=== PATIENT | male | born 1970 | race Two or more races ===

== ENCOUNTER 2017-01-19 21:52 | Emergency (ER) | payer BC, MEDICAID ==
[~2017-01-19] VITALS: Ht 177.8 cm; Wt 127.0 kg
[2017-01-19] MEDS ORDERED: MORPHINE SULFATE 4 MG/ML SYRG ONE (23:41)
[2017-01-19] MEDS ORDERED: ONDANSETRON HCL 4 MG/2 ML VIAL ONE (23:42)
[2017-01-20] MEDS ORDERED: ONDANSETRON HCL 4 MG/2 ML VIAL IM ONE (00:15)
[2017-01-20] MEDS ORDERED: MORPHINE SULFATE 4 MG/ML SYRG IM ONE (00:15)
[2017-01-20 03:08] LABS: Basophils # (auto) 0 uL; Basophils % (auto) 0.2 % (0.0-2.0); CONDITION Y; Eosinophils # (auto) 0.2 uL; Hematocrit 39.7 % (41.0-53.0); Hemoglobin 13.9 g/dL (13.5-17.5); Lymphocytes # (auto) 2.9 uL; Lymphocytes % (auto) 37.3 % (10.0-50.0); Mean Corpuscular Hemoglobin 31.4 pg (28.0-32.0); Mean Corpuscular Volume 89.8 fL (80.0-100.0); Monocytes # (auto) 0.6 uL; Monocytes % (auto) 8.1 % (0.0-12.0); Neutrophils # (auto) 4.1 uL; Neutrophils % (auto) 52.4 % (37.0-80.0); Platelet Count (auto) 280 10^3/uL (140-450); Red Cell Distribution Width 13.4 % (11.6-16.0); White Blood Cell 7.8 10^3/uL (4.4-10.8)
[2017-01-20 03:38] LABS: Albumin 3.8 g/dL (3.4-5.0); BUN/Creatinine Ratio 15.2; Bilirubin, Total 0.6 mg/dL (0.2-1.0); Calcium 8.5 mg/dL (8.5-10.1); Potassium 3.9 mmol/L (3.5-5.1); Total Protein 7.4 g/dL (6.4-8.2)
[2017-01-20 04:00] VITALS: BP 144/98
== END 2017-01-20 05:10 | disposition home or self-care (01) ==
LOC: EDBD 21:52 → ER 21:58
DX: S33.5XXA Sprain of ligaments of lumbar spine, initial encounter (principal); S29.019A Strain of muscle and tendon of unspecified wall of thorax, initial encounter; S16.1XXA Strain of muscle, fascia and tendon at neck level, initial encounter; R51 Headache; M79.1 Myalgia; W18.39XA Other fall on same level, initial encounter; Y93.89 Activity, other specified; Y92.89 Other specified places as the place of occurrence of the external cause; Y99.8 Other external cause status
CPT/HCPCS: 36415; 70450; 72125; 72128; 72131; 80053; 85025; 96372; 99285; J2270; J2405

== ENCOUNTER → 2024-08-05 | Outpatient (CLI) | payer OTHER ==
[2024-08-07 10:24] LABS: Hepatitis B Surface Antibody Negative (Negative); Hepatitis B Surface Antigen Negative (Negative)
== END | disposition home or self-care (01) ==
LOC: LAB 12:50
PROVIDERS: ATTEND Nurse Practitioner
DX: Z01.89 Encounter for other specified special examinations (principal); Z20.5 Contact with and (suspected) exposure to viral hepatitis; Z20.6 Contact with and (suspected) exposure to human immunodeficiency virus [HIV]; Z77.21 Contact with and (suspected) exposure to potentially hazardous body fluids; W26.8XXA Contact with other sharp object(s), not elsewhere classified, initial encounter; Y99.0 Civilian activity done for income or pay
CPT/HCPCS: 36415; 86703; 86706; 86803; 87340

== ENCOUNTER 2024-11-10 12:28 | Outpatient (CLI) | payer OTHER ==
[2024-11-10 15:17] LABS: Hepatitis B Surface Antibody Positive (Negative)
[2024-11-10 15:20] LABS: Hepatitis B Surface Antigen Negative (Negative)
== END 2024-11-10 17:00 | disposition home or self-care (01) ==
LOC: LAB 12:28
PROVIDERS: ATTEND Preventive Medicine Preventive Medicine/Occupational Environmental Medicine
DX: S61.218A Laceration without foreign body of other finger without damage to nail, initial encounter (principal); Z01.89 Encounter for other specified special examinations; Z20.6 Contact with and (suspected) exposure to human immunodeficiency virus [HIV]; Z77.21 Contact with and (suspected) exposure to potentially hazardous body fluids; Z20.5 Contact with and (suspected) exposure to viral hepatitis; W26.8XXA Contact with other sharp object(s), not elsewhere classified, initial encounter; Y93.89 Activity, other specified; Y92.89 Other specified places as the place of occurrence of the external cause; Y99.8 Other external cause status
CPT/HCPCS: 36415; 86703; 86706; 86803; 87340